=== PATIENT | female | born 2000 | race African-American/Black ===

== ENCOUNTER 2021-07-27 22:20 | Emergency (ER) | payer OTHER, SELFPAY ==
[2021-07-27 22:25] VITALS: BP 131/77; PULSE 89; RESP 18; TEMP 36.6; O2SAT 100
[2021-07-27 23:04] LABS: Basophils Percent Auto 0.2 % (0.2-1.2); Eosinophils Percent Auto 0.5 % (0-4.4); Hematocrit 37.7 % (37.0-47.0); Hemoglobin 12.9 g/dL (12.0-15.0); Immature Granulocyte Absolute 0.01 K/mm3 (0.00-0.031); Immature Granulocyte Percent A 0.2 % (0-0.5); Lymphocytes Absolute Auto 1.43 K/mm3 (0.9-3.2); Mean Corpuscular HGB Conc 34.2 g/dl (32-36); Mean Corpuscular Volume 90.6 fl (80-100); Mean Platelet Volume 11.7 fl (7.4-10.4); Monocytes Absolute Auto 0.4 K/mm3 (0.1-0.6); Neutrophils Absolute Auto 3.6 K/mm3 (1.3-6.7); Neutrophils Percent Auto 65.1 % (45.5-73.1); Platelet Count Result 190 k/mm3 (150-375); Red Blood Count 4.16 M/mm3 (4.2-5.4); Red Cell Distribution Width 12.1 % (11.5-14.5); White Blood Count 5.5 K/mm3 (4.5-10.0)
[2021-07-27] MEDS: SODIUM CHLORIDE 0.9% IV 1,000 ML 999 ML IV CONT (23:07)
[2021-07-27] MEDS: KETOROLAC 30 MG/ML VIAL (*BKC) IV PUSH (23:08)
[2021-07-27] MEDS: METOCLOPRAMIDE HCL INJ 10 MG/2 ML VIAL IV PUSH (23:08)
[2021-07-27] MEDS: diphenhydrAMINE HCl INJ 50 MG/ML VIAL 25 MG IV PUSH (23:09)
[2021-07-27] MEDS: BELLADONNA ALK/PHENOB ELIX 10 ML, MAG HYDROX/ALUMINUM HYD/SIMETH 30 ML, LIDOCAINE HCL 2... PO (23:09)
[2021-07-27 23:10] LABS: Alanine Aminotransferase 13 U/L (4-35); Albumin Level 5.5 g/dL (3.5-5.1); Alkaline Phosphatase 23 U/L (38-126); Anion Gap 10 mmol/L (8-16); Aspartate Amino Transferase 22 U/L (14-36); Bilirubin,Total 1.1 mg/dL (0.2-1.3); Blood Urea Nitrogen 13 mg/dL (7-17); Calcium 9.6 mg/dL (8.4-10.2); Carbon Dioxide 29 mmol/L (22-30); Chloride 105 mmol/L (98-107); Estimated CRCL calculation 97 ml/min; Estimated Glomerular Filt Rate > 60; Glucose 98 mg/dL (65-110); Lipase 70 U/L (23-300); Potassium 3.7 mmol/L (3.4-5.0); Sodium 144 mmol/L (137-145)
--- NOTE | 2021-07-27 23:12 | ED.GENADULT ---
HPI - General Adult General Chief complaint: Abdominal Pain Stated complaint: abd pain, headache Time Seen by Provider: 07/27/21 22:33 History of Present Illness HPI narrative: Patient 19-year-old female presents emerged part with chief complaint of epigastric pain. Patient reports that she started having pain in the epigastrium reports that she has some irritation in her throat and reports that she is also having headaches and has noticed that she has had a couple little blisters in her mouth. Patient states that she has been very anxious reports the symptoms are not improved by anything reports that there is no lower abdominal pain. Patient denies fever denies chills denies shortness of breath. Related Data Allergies Allergy/AdvReac Type Severity Reaction Status Date / Time No Known Allergies Allergy Verified 07/27/21 22:34 Review of Systems Review of Systems: A 10 system review of systems was completed on the patient and is negative except for what is stated in the HPI. Nursing and ancillary documentation was reviewed. Exam Narrative: GENERAL: Well-appearing, well-nourished, and in no acute distress. HEAD: Normocephalic, atraumatic. EYES: PERRLA and EOMI. ENT: Nares clear, no rhinorrhea or epistaxis. Mucous membranes moist. NECK: Supple. CHEST: Clear to auscultation. No respiratory distress. HEART: Regular rate and rhythm. No murmur heard. Normal peripheral pulses. ABDOMEN: Soft, minimal epigastric tenderness, nondistended, normal active bowel sounds. EXTREMITIES: Normal range of motion. No edema. SKIN: Warm, dry, no rash. NEURO: No focal deficits. Alert and oriented x3. PSYCH: Normal mood and affect. Course Vital Signs Vital signs: Vital Signs Temperature 36.6 C 07/27/21 22:25 Pulse Rate 89 07/27/21 22:25 Respiratory Rate 18 07/27/21 22:25 Blood Pressure 131/77 07/27/21 22:25 Pulse Oximetry 100 07/27/21 22:25 Temperature 36.6 C 07/27/21 22:25 Pulse Rate 112 H 07/27/21 23:34 Respiratory Rate 18 07/27/21 23:34 Blood Pressure 123/75 07/27/21 23:34 Pulse Oximetry 100 07/27/21 23:34 Medical Decision Making Vital Signs Vital Signs: Vital Signs Temperature 36.6 C 07/27/21 22:25 Pulse Rate 89 07/27/21 22:25 Respiratory Rate 18 07/27/21 22:25 Blood Pressure 131/77 07/27/21 22:25 Pulse Oximetry 100 07/27/21 22:25 Temperature 36.6 C 07/27/21 22:25 Pulse Rate 112 H 07/27/21 23:34 Respiratory Rate 18 07/27/21 23:34 Blood Pressure 123/75 07/27/21 23:34 Pulse Oximetry 100 07/27/21 23:34 Lab Data Result diagrams: 07/27/21 22:52 07/27/21 22:53 Labs: Lab Results 07/27/21 07/27/21 Range/Units 22:52 22:53 WBC 5.5 (4.5-10.0) K/mm3 RBC 4.16 L (4.2-5.4) M/mm3 Hgb 12.9 (12.0-15.0) g/dL Hct 37.7 (37.0-47.0) % MCV 90.6 (80-100) fl MCH 31.0 (26-34) pg MCHC 34.2 (32-36) g/dl RDW 12.1 (11.5-14.5) % Plt Count 190 (150-375) k/mm3 MPV 11.7 H (7.4-10.4) fl Immature Gran % (Auto) 0.2 (0-0.5) % Neut % (Auto) 65.1 (45.5-73.1) % Lymph % (Auto) 26.0 (18.3-44.2) % [place] % (Auto) 8.0 (2.6-8.5) % Eos % (Auto) 0.5 (0-4.4) % Baso % (Auto) 0.2 (0.2-1.2) % Lymph # (Auto) 1.43 (0.9-3.2) K/mm3 [place] # (Auto) 0.4 (0.1-0.6) K/mm3 Eos # (Auto) 0.0 (0-0.3) K/mm3 Baso # (Auto) 0.0 (0.0-0.1) K/mm3 Abs Immat Gran (auto) 0.01 (0.00-0.031) K/mm3 Absolute Neuts (auto) 3.6 (1.3-6.7) K/mm3 Absolute Nucleated RBC 0.0 (0.0-0.012) K/mm3 Nucleated RBC % 0.0 (0.0-0.2) % Sodium 144 (137-145) mmol/L Potassium 3.7 (3.4-5.0) mmol/L Chloride 105 (98-107) mmol/L Carbon Dioxide 29 (22-30) mmol/L Anion Gap 10 (8-16) mmol/L BUN 13 (7-17) mg/dL Creatinine 0.70 (0.7-1.0) mg/dL Estim Creat Clear Calc 97 ml/min Estimated GFR > 60 (59 - ) Glucose 98 (65-110) mg/dL Calcium 9.6 (8.4-10.2) mg/dL Total Bilirubin 1.1 (
[2021-07-27 23:34] VITALS: BP 123/75; PULSE 112; RESP 18; O2SAT 100
[2021-07-27] MEDS: LORazepam INJ (*CRX) 2 MG/ML VIAL 1 MG IV PUSH (23:45)
[2021-07-28 00:24] VITALS: BP 102/61; PULSE 81; RESP 17; O2SAT 95
[2021-07-28 01:21] VITALS: BP 119/79; PULSE 89; RESP 18; O2SAT 99
== END 2021-07-28 01:29 | disposition home or self-care (01) ==
PROVIDERS: Emergency Provider Emergency Medicine
DX: R10.13 Epigastric pain (principal); K29.70 Gastritis, unspecified, without bleeding; R51.9 Headache, unspecified
CPT/HCPCS: 36415; 80053; 83690; 85025; 96361; 96374; 96375; 99284; A9270; J1200; J1885; J2060; J2765; J7030

== ENCOUNTER 2023-04-07 13:56 | Outpatient (CLI) | payer OTHER, SELFPAY ==
[2023-04-07 17:04] LABS: Alanine Aminotransferase 18 U/L (6-35); Albumin Level 4.5 g/dL (3.5-5.1); Alkaline Phosphatase 21 U/L (38-126); Anion Gap 7 mmol/L (8-16); Aspartate Amino Transferase 42 U/L (14-36); Bilirubin,Total 0.7 mg/dL (0.2-1.3); Blood Urea Nitrogen 14 mg/dL (7-17); Calcium 8.7 mg/dL (8.4-10.2); Carbon Dioxide 31 mmol/L (22-30); Chloride 102 mmol/L (98-107); Estimated Glomerular Filt Rate > 60; Glucose 96 mg/dL (65-110); Magnesium 2.2 mg/dL (1.6-2.3); Phosphorus 3.4 mg/dL (2.5-4.5); Potassium 4.1 mmol/L (3.4-5.0); Sodium 140 mmol/L (137-145)
[2023-04-07 17:14] LABS: Parathyroid Intact 55.3 pg/mL (7.5-53.5)
[2023-04-07 17:34] LABS: Thyroid Stimulating Hormone 0.718 uIU/mL (0.465-4.680)
[2023-04-07 18:28] LABS: Free T4 Free Thyroxine 0.99 ng/mL (0.78-2.19)
[2023-04-07 19:09] LABS: Vitamin D 25 Hydroxy 31.9 ng/mL
[2023-04-12 13:34] LABS: Vitamin B6 26.9 ng/mL (2.1-21.7)
[2023-04-12 17:24] LABS: Thyroid Peroxidase Antibodies <1 IU/mL (<9)
== END 2023-04-07 13:57 | disposition home or self-care (01) ==
LOC: ANHWCLAB 13:57
PROVIDERS: PCP Physician Assistant; Visit Provider Internal Medicine
DX: R74.8 Abnormal levels of other serum enzymes (principal)
CPT/HCPCS: 36415; 80053; 82306; 83735; 83970; 84100; 84207; 84439; 84443; 86376

== ENCOUNTER 2023-12-01 14:47 | Emergency (ER) | payer OTHER, SELFPAY ==
[2023-12-01 14:52] VITALS: BP 136/71; PULSE 80; RESP 20; TEMP 36.4; O2SAT 100
--- NOTE | 2023-12-01 15:28 | ED.FEMALEGU ---
HPI - Female Genitourinary General Chief complaint: Urogenital-Female Stated complaint: poss UTI Time Seen by Provider: 12/01/23 15:29 Source: patient, RN notes reviewed and old records reviewed Mode of arrival: ambulatory Limitations: no limitations History of Present Illness HPI Narrative: 23-year-old female presents to the [facility] with complaints of cloudy urine, discomfort. States that her last menstrual period was about a month ago, unsure of date Did denies any concerns for STDs Onset (ago): hour(s) Related Data Allergies Allergy/AdvReac Type Severity Reaction Status Date / Time No Known Allergies Allergy Verified 05/10/23 11:04 Review of Systems Review of Systems: All systems reviewed & are unremarkable except as noted in HPI and below Constitutional: Constitutional: Reports no additional constitutional complaints Eyes: Eyes: Reports no additional eye complaints ENT: Reports system reviewed and no additional complaints, except as documented Cardiovascular: Cardiovascular: Reports no additional cardiovascular complaints, Denies chest pain and Denies dyspnea Respiratory: Respiratory: Reports no additional respiratory complaints, Denies chest congestion, Denies cough and Denies dyspnea Gastrointestinal: Gastrointestinal: Reports no additional gastrointestinal complaints, Denies abdominal pain, Denies nausea and Denies vomiting Genitourinary: Genitourinary: Reports as per HPI Musculoskeletal: Musculoskeletal: Reports no additional musculoskeletal complaints Integumentary/Breasts: Skin/Breast: Reports system reviewed and no additional complaints, except as docu Neurologic: Reports system reviewed and no additional complaints, except as documented Psychiatric: Psychiatric: Reports no additional psychiatric complaints Allergic/Immunologic: Allergic/Immunologic: Reports no additional allergic/immunologic complaints PMFSH Social History Social History Smoking status: Never smoker Alcohol intake: current Alcohol use details: occasional Substance use: never Comments At the time of my signature, I reviewed and agree with the nursing past medical, surgical, social, and family history. There is no relevant family history pertinent to the patient complaint. Exam Const: General: cooperative, healthy appearing, comfortable, no acute distress, well developed, alert and well nourished Nutritional Appearance: well nourished Orientation/consciousness: patient oriented x3 Limitations: no limitations HENMT: Head: normal to inspection Ears: hearing grossly normal bilaterally and external ears normal Face/Nose/Sinus: Normal external nose present, Normal nares present, Normal nasal mucous membranes and turbinates present, normal facial exam and face symmetric Face and sinus: normal facial exam and face symmetric Mouth: Yes moist mucous membranes Eyes: General: appearance normal, both eyes and all related structures Alignment and Position: alignment normal Periorbital: periorbital findings normal Pupils: Equal, round and reactive pupils present EOM: EOMs intact bilaterally Neck: Neck: normal visual inspection, full ROM, no lymphadenopathy and no meningeal signs Chest: Chest palpation & inspection: normal inspection of the chest Resp: Effort & Inspection: normal respiratory effort and able to speak in complete sentences Auscultation: clear to auscultation bilaterally, no crackles, no rales, no rhonchi and no wheezes Cardio: Rate: regular rate Rhythm: regular rhythm GI: GI Palp: No abdominal tenderness and Yes Soft to palpation : General: Yes no CVA tenderness Back/Spine/Pelvis: Cervical Spine: cervical ROM normal Skin: General skin exam: normal color and no rashes or lesions noted Lesions: no lesions Rashes: no rashes Wounds: no wounds Neuro: General: patient oriented x3, gait normal, tone normal, moves all extremities and no meningeal signs
== END 2023-12-01 15:40 | disposition home or self-care (01) ==
PROVIDERS: Emergency Provider Nurse Practitioner
DX: N39.0 Urinary tract infection, site not specified (principal); B96.20 Unspecified Escherichia coli [E. coli] as the cause of diseases classified elsewhere
CPT/HCPCS: 81003; 81025; 87077; 87086; 87186; 99213; G0463